=== PATIENT | female | born 1970 | race Caucasian/White ===

== ENCOUNTER 2021-10-18 07:34 | Outpatient (CLI) | payer OTHER | END 2021-10-18 07:36 | disposition home or self-care (01) | LOC: SONOGRAMA 07:34 | PROVIDERS: ATTEND Internal Medicine Gastroenterology | DX: R10.84 Generalized abdominal pain (principal) ==

== ENCOUNTER 2025-08-20 06:00 | Day surgery (SDC) | payer OTHER ==
[2025-08-18 14:47] VITALS: BP 140/90
[~2025-08-20] VITALS: Ht 154.9 cm; Wt 59.0 kg
[2025-08-20] MEDS ORDERED: CLINDAMYCIN PHOSPHATE 150 MG/ML (900mg) ONE (06:50)
[2025-08-20] MEDS ORDERED: EPINEPHRINE HCL/PF 1 MG/ML AMPUL ONE (08:07)
[2025-08-20] MEDS ORDERED: POVIDONE-IODINE SCRUB 118 ML BOTT TOP ONE (08:08)
[2025-08-20] MEDS ORDERED: POVIDONE-IODINE 118 ML BOTT TOP ONE (08:08)
[2025-08-20] MEDS ORDERED: CEFAZOLIN SODIUM 1,000 MG VIAL ONE (08:09)
[2025-08-20] MEDS ORDERED: GENTAMICIN SULFATE 40 MG/ML VIAL ONE (08:09)
[2025-08-20] MEDS ORDERED: TRANEXAMIC ACID 100MG/1ML (1000MG) AMPUL ONE (08:52)
[2025-08-20] MEDS ORDERED: NITROGLYCERIN 1 INCH OINT..GM. TD ONE (09:18)
[2025-08-20] MEDS ORDERED: SUGAMMADEX SODIUM 200 MG/2 ML VIAL IV ONE (10:45)
[2025-08-20] MEDS ORDERED: ONDANSETRON HCL 2 MG/ML VIAL IV PRN (11:45)
== END 2025-08-20 13:25 | disposition home or self-care (01) ==
LOC: CIR.AMB 06:00
PROVIDERS: ATTEND Plastic Surgery
DX: N64.81 Ptosis of breast (principal)